=== PATIENT | female | born 1935 | race Caucasian/White ===

== ENCOUNTER 2019-11-01 14:37 | Emergency (ER) | payer MEDICARE, OTHER, SELFPAY ==
[2019-11-01 14:41] VITALS: BMI 28.3
[2019-11-01 14:47] VITALS: BP 175/59; PULSE 65; RESP 18; TEMP 36.4; O2SAT 91
--- NOTE | 2019-11-01 14:49 | ED_ITS ---
Entered by Paulina Angel, acting as scribe for Edgar Rowan DO HPI - Weakness General: Chief complaint: Weakness Stated complaint: NEAR SYNCOPE, DIZZY, WEAKNESS Time Seen by Provider: 11/01/19 14:44 Source: patient and EMS Mode of arrival: EMS History of Present Illness: HPI Narrative: 84 yo female presents with weakness. 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 pt states she does this when she eats sugar then she is fine. pt states the other people wanted her checked out they called EMS. 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) Duration: progressively worsening Severity: mild Relieving factors: none Exacerbating factors: none Associated symptoms: Reports no associated symptoms and syncope (while standing then sat down); Denies chills, confusion, dark stools, dysuria, easy bruising, fever(s), headache(s), nausea or vomiting Review of Systems Const: Denies: fever, chills, body aches, fatigue, malaise or night sweats Eyes: Denies: change in vision or blurry vision ENMT: Denies: throat pain, oral sores/lesions, dental pain, nasal discharge or nasal congestion Card: Reports: syncope (while standing then sat down) Resp: Denies: shortness of breath, productive cough, non-productive cough or wheezing GI: Denies: abdominal pain, nausea, vomiting, vomiting blood, coffee grounds in vomit, difficulty swallowing, heartburn/indigestion, diarrhea, constipation, cramping, blood in stool or black tarry stool : Denies: flank pain, painful urination, urinary frequency, urinary urgency, urinary incontinence or blood in urine Musc: Denies: neck pain, back pain, extremity pain, extremity swelling, joint pain or joint swelling Skin/Breast: Denies: rash, itching or redness Neuro: Denies: headache, numbness in extremities, weakness in extremities, changes in sensation, lack of coordination, difficulty walking, frequent falls or confusion Psych: Denies: anxiety, depression, loss of interest, visual hallucinations, auditory hallucinations, suicidal ideation or homicidal ideation Endo: Denies: excessive urination, excessive thirst, tired all the time or cold intolerance Allan/Lymph: Denies: easy bruising, easy bleeding, petechiae, enlarged lymph nodes or tender lymph nodes PFSH ED PFSH: Statuses (acute, chronic, etc) shown below reflect problem list status as previously entered and may not be historically accurate Social History Smoking and tobacco status: never smoked Physical Exam Const: COMMON NORMALS: average body habitus, oriented x3 and alert GENERAL APPEARANCE: cooperative, comfortable, well kempt and well developed NUTRITIONAL APPEARANCE: obese ORIENTATION/CONSCIOUSNESS: Yes awake, Yes oriented to person and Yes oriented to place HENMT: COMMON NORMALS: normocephalic, head/scalp atraumatic, EAC's normal, TM's normal bilaterally, external nose normal, moist oral mucous membranes and oropharynx normal HEAD & SCALP: normocephalic and atraumatic NOSE: external nose normal EXTERNAL AUDITORY CANAL: EAC's normal TYMPANIC MEMBRANE: TM's normal bilaterally MOUTH: oral and palatal mucosa normal, lip normal and tongue normal THROAT: posterior oropharynx normal and tonsils normal Eye: COMMON NORMALS: PERRL, EOMs intact bilaterally, conjunctivae normal and no scleral icterus CONJUNCTIVA: Yes conjunctivae normal PUPIL: Yes PERRL Neck/C-Spine: COMMON NORMALS: full ROM, no lymphadenopathy, supple, no meningeal signs and thyroid normal THYROID: thyroid normal and asymmetrical Lymph: LYMPHATIC: no lymphadenopathy noted Resp: COMMON NORMALS: normal respiratory effort, no retractions, no use of accessory muscles and clear to auscultation bilaterally AUSCULTATION: clear to auscultation bilaterally Cardio: COMMON NORMALS: regular rate and regular rhythm RATE: regular rate RHYTHM: regular rhythm HEART SOUNDS: no murmurs GI: COMMON NORMALS: normal to inspection, nondistended, normoactive bowel sounds, soft to palpation and no hepatosplenomegaly PALPATION: Yes soft and Yes no hepatosplenomegaly : COMMON NORMALS: Yes no CVA tenderness BLADDER/KIDNEY EXAM: Yes no CVA tenderness Back/Pelvis: COMMON NORMALS: no CVA tenderness LUMBAR SPINE/LOWER BACK: Yes normal to inspection Extremity: COMMON NORMALS: no clubbing, cyanosis or edema, no calf tenderness and no pedal edema Neuro: COMMON NORMALS: oriented x3 SENSORIUM/ORIENTATION: Yes alert, Yes oriented to person and Yes oriented to place MENINGEAL SIGNS: Yes no meningeal signs Psych: APPEARANCE: Yes well kempt Skin: COMMON NORMALS: no rashes or lesions noted and skin turgor normal GENERAL SKIN EXAM: no rashes or lesions noted and turgor normal Course ED course: Patient reports having multiple episodes of this in the past this occurred after she been standing for an extended period of time. Her sodium is a little bit on the low side but she has had this in the past. Gets mostly relatable to her chlorthalidone. She is feeling well and prefers to go home we will go ahead and discharge home follow-up with her primary care doctor return if worsens or changes Vital Signs: Vital signs: Vital Signs Temperature 97.6 F 11/01/19 14:47 Pulse Rate 72 11/01/19 18:57 Respiratory Rate 17 11/01/19 18:57 Blood Pressure 200/92 11/01/19 18:57 Pulse Oximetry 93 11/01/19 18:57 MDM - Weakness Lab Data: Labs: Lab Results 11/01/19 11/01/19 11/01/19 Range/Units 15:20 15:20 16:10 WBC 6.3 (4.0-10.0) 10^3/ uL RBC 3.48 L (4.1-5.3) 10^6/u L Hgb 10.8 L (11.5-15.3) g/dL Hct 31.1 L (37.0-47.0) % MCV 89.4 (81-99) fL MCH 31.0 (28.0-34.0) pg MCHC 34.7 (30.0-36.0) g/dL RDW 12.0 L (12.1-15.1) % Plt Count 296 (130-400) 10^3/c mm MPV 9.2 (7.4-10.4) fL Neut % (Auto) 74.8 % Lymph % (Auto) 18.0 % [place] % (Auto) 5.3 % Eos % (Auto) 1.0 % Baso % (Auto) 0.6 % Neut # (Auto) 4.7 (1.8-7.7) 10^3/u L Lymph # (Auto) 1.1 (0.8-4.8) 10^3/u L [place] # (Auto) 0.3 (0.2-0.9) 10^3/u L Eos # (Auto) 0.1 (0.0-0.8) 10^3/u L Baso # (Auto) 0.0 (0.0-0.1) 10^3/u L Nucleated RBC % (a uto) 0 % Nucleated RBCs # 0.0 /100WBC Sodium 131 L (136-145) mmol/L Potassium 4.1 (3.5-5.1) mmol/L Chloride 94 L (98-107) mmol/L Carbon Dioxide 26 (22-29) mmol/L Anion Gap 15.1 (5-19) BUN 18 (8-23) mg/dL Creatinine 1.4 H (0.5-0.9) mg/dL Glucose 134 H (65-115) mg/dL Calculated Osmolal ity (285-295) mOsm/k g Calcium 9.8 (8.5-10.5) mg/dL Total Bilirubin 0.5 (0.15-1.2) mg/dL AST 24 (0-32) U/L ALT 17 (0-33) U/L Alkaline Phosphata se 97 (35-105) IU/L Total Protein 7.5 (6.6-8.7) g/dL Albumin 3.9 (3.5-5.2) g/dL Globulin 3.6 (1.3-4.6) g/dL Urine Color Yellow (Yellow) Urine Appearance Clear (CLEAR) Urine pH 6 (5-7) Ur Specific Gravit y 1.010 (1.005-1.030) Urine Protein Neg (Negative) Urine Glucose (UA) Norm (Normal) Urine Ketones 1+ H (Negative) Urine Occult Blood Neg (Negative) Urine Nitrate Negative (Negative) Urine Bilirubin Neg (NEGATIVE) Urine Urobilinogen Norm (Negative) mg/dL Ur Leukocyte Katlyn ase Negative (Negative) 11/01/19 Range/Units 16:28 WBC (4.0-10.0) 10^3/ uL RBC (4.1-5.3) 10^6/u L Hgb (11.5-15.3) g/dL Hct (37.0-47.0) % MCV (81-99) fL MCH (28.0-34.0) pg MCHC (30.0-36.0) g/dL RDW (12.1-15.1) % Plt Count (130-400) 10^3/c mm MPV (7.4-10.4) fL Neut % (Auto) % Lymph % (Auto) % [place] % (Auto) % Eos % (Auto) % Baso % (Auto) % Neut # (Auto) (1.8-7.7) 10^3/u L Lymph # (Auto) (0.8-4.8) 10^3/u L [place] # (Auto) (0.2-0.9) 10^3/u L Eos # (Auto) (0.0-0.8) 10^3/u L Baso # (Auto) (0.0-0.1) 10^3/u L Nucleated RBC % (a uto) % Nucleated RBCs # /100WBC Sodium 129 L (136-145) mmol/L Potassium 4.0 (3.5-5.1) mmol/L Chloride 92 L (98-107) mmol/L Carbon Dioxide 25 (22-29) mmol/L Anion Gap 16.0 (5-19) BUN 19 (8-23) mg/dL Creatinine 1.3 H (0.5-0.9) mg/dL Glucose 154 H (65-115) mg/dL Calculated Osmolal ity 268 L (285-295) mOsm/k g Calcium 9.6 (8.5-10.5) mg/dL Total Bilirubin (0.15-1.2) mg/dL AST (0-32) U/L ALT (0-33) U/L Alkaline Phosphata se (35-105) IU/L Total Protein (6.6-8.7) g/dL Albumin (3.5-5.2) g/dL Globulin (1.3-4.6) g/dL Urine Color (Yellow) Urine Appearance (CLEAR) Urine pH (5-7) Ur Specific Gravit y (1.005-1.030) Urine Protein (Negative) Urine Glucose (UA) (Normal) Urine Ketones (Negative) Urine Occult Blood (Negative) Urine Nitrate (Negative) Urine Bilirubin (NEGATIVE) Urine Urobilinogen (Negative) mg/dL Ur Leukocyte Katlyn ase (Negative) Discharge Plan Discharge Patient Disposition: Home, Self-Care Clinical Impression: Syncope Condition: Stable Prescriptions: No Action carvedilol 25 mg tablet 25 mg PO BID RF: 0 chlorthalidone 25 mg tablet 12.5 mg PO DAILY RF: 0 hydralazine 50 mg tablet 50 mg PO TID RF: 0 irbesartan 300 mg tablet 150 mg PO BID RF: 0 Referrals: Rony Aguirre MD [Family Provider] - Discharge Diet: Usual diet Discharge Activity: Increase activity as tolerated Discharge Date/Time: 11/01/19 18:57 Coding Level of Care Code ED Registered Nurse for Chg Fwd Exam Problem Focused The documentation recorded by the Stanley leblanc Bridget Annette, accurately reflects the service I personally performed and the decisions made by Anum dean Curtis L, DO Nov 01, 2019 14:37
[2019-11-01 15:26] LABS: Basophils % 0.6 %; Eosinophils # 0.1 10^3/uL (0.0-0.8); Hematocrit 31.1 % (37.0-47.0); Hemoglobin 10.8 g/dL (11.5-15.3); Lymphocytes # 1.1 10^3/uL (0.8-4.8); Mean Corpuscular HGB Conc 34.7 g/dL (30.0-36.0); Mean Corpuscular Volume 89.4 fL (81-99); Mean Platelet Volume 9.2 fL (7.4-10.4); Monocytes # 0.3 10^3/uL (0.2-0.9); Monocytes % 5.3 %; Neutrophils # 4.7 10^3/uL (1.8-7.7); Neutrophils % 74.8 %; Nucleated Red Blood Cells % 0 %; Platelet Count 296 10^3/cmm (130-400); Red Blood Count 3.48 10^6/uL (4.1-5.3); White Blood Count 6.3 10^3/uL (4.0-10.0)
[2019-11-01 15:28] VITALS: PULSE 73; RESP 17; O2SAT 91
[2019-11-01 15:53] LABS: Alanine Aminotransferase 17 U/L (0-33); Albumin Level 3.9 g/dL (3.5-5.2); Alkaline Phosphatase 97 IU/L (35-105); Anion Gap 15.1 (5-19); Aspartate Amino Transferase 24 U/L (0-32); Blood Urea Nitrogen 18 mg/dL (8-23); Calcium 9.8 mg/dL (8.5-10.5); Carbon Dioxide 26 mmol/L (22-29); Chloride 94 mmol/L (98-107); Globulin 3.6 g/dL (1.3-4.6); Glucose 134 mg/dL (65-115); Potassium 4.1 mmol/L (3.5-5.1); Sodium 131 mmol/L (136-145); Total Bilirubin 0.5 mg/dL (0.15-1.2); Total Protein 7.5 g/dL (6.6-8.7)
[2019-11-01 16:04] VITALS: BP 142/80; BP 172/72; BP 182/68; PULSE 67; PULSE 68; PULSE 73
[2019-11-01 16:32] VITALS: PULSE 71; RESP 20; O2SAT 93
[2019-11-01 16:57] LABS: Add Urine Microscopic? NO
[2019-11-01 16:59] LABS: Blood Urea Nitrogen 19 mg/dL (8-23); Calcium 9.6 mg/dL (8.5-10.5); Carbon Dioxide 25 mmol/L (22-29); Chloride 92 mmol/L (98-107); Glucose 154 mg/dL (65-115); Osmolality Calculated 268 mOsm/kg (285-295); Sodium 129 mmol/L (136-145)
[2019-11-01 17:30] LABS: Bilirubin Urine Neg (NEGATIVE); Blood Urine Neg (Negative); Glucose Urine UA Norm (Normal); Ketones Urine 1+ (Negative); Leukocyte Esterase Urine Negative (Negative); Nitrate Urine Negative (Negative); Protein Urine Neg (Negative); Urine Appearance Clear (CLEAR); Urine Color Yellow (Yellow); Urobilinogen Urine Norm (Negative); pH Urine 6 (5-7)
[2019-11-01 18:09] VITALS: PULSE 71; RESP 20; O2SAT 93
[2019-11-01 18:57] VITALS: BP 200/92; PULSE 72; RESP 17; O2SAT 93
== END 2019-11-01 18:57 | disposition home or self-care (01) ==
PROVIDERS: Emergency Provider Family Medicine; Family Provider Family Medicine
DX: R55 Syncope and collapse (principal)
CPT/HCPCS: 36415; 80048; 80053; 81003; 85025; 99283; A9270

== ENCOUNTER 2020-06-26 10:32 | Outpatient (CLI) | payer MEDICARE, OTHER, SELFPAY ==
--- NOTE | 2020-06-26 10:46 | USCV_ITS ---
Robert Aden Age: 84 Gender: F : 1935 Exam Date: 06/26/2020 10:56 Ordering Phys: Waltre Alexandra [place] ([email or web address] [place] Technologist: Dominique Malcolm Exam Location: [facility] [place] Indication: stenosis Risk Factors: Previous Vascular Surgery: Right Brachial BP: / Left Brachial BP: / Right Left Velocity (cm/s) Spectral Plaque Velocity (cm/s) Spectral Plaque Syst/Diast Broadening Syst/Diast Broadening 89.80/ 12.40 Prox CCA 84.40 / 10.30 73.30/ 15.70 Mid CCA 82.50 / 15.00 59.30/ 16.50 Distal CCA 61.00 / 17.80 46.10/ 16.50 Prox ICA 89.90 / 17.20 51.60/ 14.10 Mid ICA 58.10 / 21.10 71.30/ 20.60 Distal ICA 42.20 / 14.10 79.10 ECA 128.20 0.97 ICA/CCA 1.09 Not Vertebral Antegrade Visualized / cm/s 47.80/ 7.50 cm/s Tri Subclavian 66.60 148.4 0 FINDINGS Minimal dense scattered plaques at the bifurcation and internal carotid artery on the right side Minimal dense plaques of the left bifurcation internal carotid artery on the left side Intimal thickening in the common carotid arteries bilaterally. Antegrade flow in the vertebral artery on the left side. Right vertebral artery could not be visualized. CONCLUSIONS Minimal dense plaques at the bifurcations and internal carotid arteries bilaterally. Intimal thickening in the common carotid arteries bilaterally. Right vertebral artery could not be visualized. Compared to the study from 09/09/2019 the flow in the left vertebral artery is antegrade at this time! Consider CTA, to better evaluate the arch vessels Dr Terrance Null MD FACC (Electronically Signed) Final Date: 27 June 2020 20:45 S
[2020-06-26 12:34] LABS: Anion Gap 14.3 (5-19); Blood Urea Nitrogen 23 mg/dL (8-23); Calcium 9.5 mg/dL (8.5-10.5); Carbon Dioxide 28 mmol/L (22-29); Chloride 94 mmol/L (98-107); Glucose 84 mg/dL (65-115); Osmolality Calculated 277 mOsm/kg (285-295); Potassium 4.3 mmol/L (3.5-5.1); Sodium 132 mmol/L (136-145)
== END 2020-06-26 10:33 | disposition home or self-care (01) ==
LOC: RAD 10:36
PROVIDERS: Visit Provider Thoracic Surgery (Cardiothoracic Vascular Surgery)
DX: I65.23 Occlusion and stenosis of bilateral carotid arteries (principal)
CPT/HCPCS: 36415; 80048; 93880

== ENCOUNTER 2021-01-10 11:29 | Outpatient (CLI) | payer MEDICARE, OTHER, SELFPAY ==
[2021-01-10 12:30] LABS: Albumin Level 4.1 g/dL (3.5-5.2); Anion Gap 12.4 (5-19); Blood Urea Nitrogen 22 mg/dL (8-23); Calcium 9.3 mg/dL (8.5-10.5); Carbon Dioxide 29 mmol/L (22-29); Chloride 94 mmol/L (98-107); Glucose 117 mg/dL (65-115); Phosphorus 3.2 mg/dL (2.5-4.5); Potassium 4.4 mmol/L (3.5-5.1); Sodium 131 mmol/L (136-145)
== END 2021-01-10 11:30 | disposition home or self-care (01) ==
PROVIDERS: PCP Family Medicine; Visit Provider Internal Medicine Nephrology
DX: N18.31 Chronic kidney disease, stage 3a (principal)
CPT/HCPCS: 36415; 80069

== ENCOUNTER 2021-06-29 09:58 | Outpatient (CLI) | payer MEDICARE, OTHER, SELFPAY ==
--- NOTE | 2021-06-29 11:00 | USCV_ITS ---
Robert Aden Age: 85 Gender: F : 1935 Exam Date: 06/29/2021 10:43 Ordering Phys: Walter Alexandra MD (Andy) ([email or web address] [place]) Technologist: Dipika Stearns [place] [facility] [place]: Carotid artery stenosis Risk Factors: Previous Vascular Surgery: R CEA Right Brachial BP: / Left Brachial BP: / Right Left Velocity (cm/s) Spectral Plaque Velocity (cm/s) Spectral Plaque Syst/Diast Broadening Syst/Diast Broadening 89.40/ 4.80 Prox CCA 85.00 / 14.60 80.70/ 12.50 Mid CCA 82.50 / 11.50 69.50/ 11.00 Distal CCA 74.60 / 10.90 58.10/ 10.60 Prox ICA 89.90 / 26.80 74.70/ 18.10 Mid ICA 87.20 / 22.50 78.40/ 20.40 Distal ICA 109.70/ 24.40 83.10 ECA 123.90 0.97 ICA/CCA 1.33 Antegrade Vertebral Retrograde 88.10/ 11.50 cm/s 54.40/ 6.60 cm/s Tri Subclavian [place] 113.2 70.30 0 CONCLUSIONS Right ICA stenosis <50%. Mild atheromatous plaque right carotid bulb/ICA. Left ICA stenosis <50%. Mild atheromatous plaque left carotid bulb/ICA. Normal antegrade Doppler flow noted in the right vertebral artery. Retrograde Doppler flow noted in the left vertebral artery with monophasic subclavian waveform suspicious for subclavian steal. Sekou Sanchez MD (Electronically Signed) Final Date: 29 June 2021 15:13 S
[2021-06-29 11:28] LABS: Basophils % 0.8 %; Eosinophils # 0.1 10^3/uL (0.0-0.8); Eosinophils % 1.7 %; Hematocrit 36.7 % (37.0-47.0); Hemoglobin 12.7 g/dL (11.5-15.3); Lymphocytes # 1.3 10^3/uL (0.8-4.8); Lymphocytes % 26.3 %; Mean Corpuscular HGB Conc 34.6 g/dL (30.0-36.0); Mean Corpuscular Hemoglobin 31.4 pg (28.0-34.0); Mean Corpuscular Volume 90.6 fl (81-99); Mean Platelet Volume 10.2 fL (7.4-10.4); Monocytes # 0.4 10^3/uL (0.2-0.9); Monocytes % 7.5 %; Neutrophils # 3.04 10^3/uL (1.8-7.7); Neutrophils % 63.5 %; Nucleated Red Blood Cells % 0 %; Platelet Count 266 10^3/cmm (130-400); Red Blood Count 4.05 10^6/uL (4.1-5.3); Red Cell Distribution Width 11.9 % (12.1-15.1); White Blood Count 4.8 10^3/uL (4.0-10.0)
[2021-06-29 11:46] LABS: Creatinine Urine, Random 46 mg/dL (28-217)
[2021-06-29 11:47] LABS: Microalbum Creatinine Ratio Ur 22 mg/dL (0-20); Microalbumin Random Urine 1 ug/dL (0-20)
[2021-06-29 12:03] LABS: Albumin Level 4.1 g/dL (3.5-5.2); Anion Gap 14.2 (5-19); Blood Urea Nitrogen 22 mg/dL (8-23); Calcium 9.6 mg/dL (8.5-10.5); Carbon Dioxide 29 mmol/L (22-29); Chloride 94 mmol/L (98-107); Glucose 103 mg/dL (65-115); Phosphorus 2.8 mg/dL (2.5-4.5); Potassium 4.2 mmol/L (3.5-5.1); Sodium 133 mmol/L (136-145)
[2021-06-29 12:13] LABS: Calcium 9.6 mg/dL (8.5-10.5); Parathyroid Hormone 46.3 pg/mL (15-65)
== END 2021-06-29 09:59 | disposition home or self-care (01) ==
LOC: US 10:06
PROVIDERS: PCP Family Medicine; Referring Provider Internal Medicine Nephrology; Visit Provider Thoracic Surgery (Cardiothoracic Vascular Surgery)
DX: I65.23 Occlusion and stenosis of bilateral carotid arteries (principal)
CPT/HCPCS: 36415; 80069; 82044; 82310; 83970; 85025; 93880

== ENCOUNTER 2022-01-02 10:25 | Outpatient (CLI) | payer MEDICARE, OTHER, SELFPAY ==
[2022-01-02 11:47] LABS: Calcium 9.8 mg/dL (8.5-10.5); Parathyroid Hormone 47.8 pg/mL (15-65)
[2022-01-02 12:07] LABS: Creatinine Urine, Random 28 mg/dL (28-217); Microalbum Creatinine Ratio Ur 36 mg/dL (0-20); Microalbumin Random Urine 1 ug/dL (0-20)
[2022-01-03 14:01] LABS: Albumin Level 4.2 g/dL (3.5-5.2); Anion Gap 17.2 (5-19); Blood Urea Nitrogen 17 mg/dL (8-23); Calcium 9.5 mg/dL (8.5-10.5); Carbon Dioxide 24 mmol/L (22-29); Chloride 89 mmol/L (98-107); Glucose 95 mg/dL (65-115); Potassium 6.2 mmol/L (3.5-5.1); Sodium 124 mmol/L (136-145)
== END 2022-01-02 10:26 | disposition home or self-care (01) ==
LOC: LAB 10:28
PROVIDERS: PCP Family Medicine; Visit Provider Internal Medicine Nephrology
DX: N18.2 Chronic kidney disease, stage 2 (mild) (principal)
CPT/HCPCS: 36415; 80069; 82044; 82310; 83970

== ENCOUNTER 2022-01-22 09:36 | Outpatient (CLI) | payer MEDICARE, OTHER, SELFPAY ==
[2022-01-22 10:19] LABS: Blood Urea Nitrogen 18 mg/dL (8-23); Calcium 8.8 mg/dL (8.5-10.5); Carbon Dioxide 26 mmol/L (22-29); Chloride 96 mmol/L (98-107); Glucose 127 mg/dL (65-115); Osmolality Calculated 275 mOsm/kg (285-295); Sodium 131 mmol/L (136-145)
== END 2022-01-22 09:37 | disposition home or self-care (01) ==
PROVIDERS: PCP Family Medicine; Visit Provider Internal Medicine Nephrology
DX: Z01.89 Encounter for other specified special examinations (principal)
CPT/HCPCS: 36415; 80048

== ENCOUNTER 2022-06-11 10:04 | Outpatient (CLI) | payer MEDICARE, OTHER, SELFPAY ==
[2022-06-11 10:46] LABS: Basophils # 0.1 10^3/uL (0.0-0.1); Basophils % 1.1 %; Eosinophils # 0.2 10^3/uL (0.0-0.8); Eosinophils % 2.9 %; Hematocrit 33.4 % (37.0-47.0); Hemoglobin 11.7 g/dL (11.5-15.3); Lymphocytes # 1.3 10^3/uL (0.8-4.8); Lymphocytes % 24.4 %; Mean Corpuscular Volume 94.1 fl (81-99); Mean Platelet Volume 10.5 fL (7.4-10.4); Monocytes # 0.4 10^3/uL (0.2-0.9); Monocytes % 7.7 %; Neutrophils # 3.44 10^3/uL (1.8-7.7); Neutrophils % 63.3 %; Nucleated Red Blood Cells % 0 %; Platelet Count 239 10^3/cmm (130-400); Red Blood Count 3.55 10^6/uL (4.1-5.3); Red Cell Distribution Width 12.5 % (12.1-15.1); White Blood Count 5.4 10^3/uL (4.0-10.0)
[2022-06-11 11:08] LABS: Albumin Level 3.9 g/dL (3.5-5.2); Anion Gap 14.9 (5-19); Blood Urea Nitrogen 15 mg/dL (8-23); Calcium 9.4 mg/dL (8.5-10.5); Carbon Dioxide 24 mmol/L (22-29); Chloride 98 mmol/L (98-107); Glucose 113 mg/dL (65-115); Phosphorus 2.8 mg/dL (2.5-4.5); Potassium 4.9 mmol/L (3.5-5.1); Sodium 132 mmol/L (136-145)
[2022-06-11 11:10] LABS: Creatinine Urine, Random 82 mg/dL (28-217); Microalbum Creatinine Ratio Ur 12 mg/dL (0-20); Microalbumin Random Urine 1 ug/dL (0-20)
[2022-06-11 12:02] LABS: Calcium 9.5 mg/dL (8.5-10.5); Parathyroid Hormone 51.6 pg/mL (15-65)
== END 2022-06-11 10:05 | disposition home or self-care (01) ==
LOC: LAB 10:10
PROVIDERS: PCP Nurse Practitioner Family; Visit Provider Internal Medicine Nephrology
DX: N18.2 Chronic kidney disease, stage 2 (mild) (principal)
CPT/HCPCS: 36415; 80069; 82044; 82310; 83970; 85025

== ENCOUNTER 2022-10-11 11:34 | Outpatient (CLI) | payer MEDICARE, OTHER, SELFPAY ==
--- NOTE | 2022-10-11 12:00 | USCV_ITS ---
Robert Aden Age: 86 Gender: F : 1935 Exam Date: 10/11/2022 12:16 Ordering Phys: Walter Alexandra MD (Andy) ([email or web address] [place] Technologist: BRIANA Exam Location: [facility] [place] Indication: Carotid Stenosis Risk Factors: Previous Vascular Surgery: Right Brachial BP: / Left Brachial BP: / Right Left Velocity (cm/s) Spectral Plaque Velocity (cm/s) Spectral Plaque Syst/Diast Broadening Syst/Diast Broadening 87.20/ 12.80 Prox CCA 92.90 / 14.10 96.60/ 16.20 Mid CCA 66.10 / 10.60 64.10/ 10.30 Distal CCA 52.90 / 9.30 53.20/ 9.20 Prox ICA 51.50 / 13.90 36.80/ 13.10 Mid ICA 54.80 / 19.20 65.70/ 16.40 Distal ICA 74.00 / 17.80 61.80 ECA 114.40 0.68 ICA/CCA 0.80 Vertebral 100.4/ 15.90 cm/s 43.00/ 0.70 cm/s 0 Subclavian 112.5 63.40 0 FINDINGS Comparison:. 06/29/21. No significant elevation of systolic or diastolic velocities. Waveforms are normal. Mild carotid atherosclerosis. Antegrade vertebral arteries. CONCLUSIONS Bilateral ICA stenosis less than 50%. No progression of atherosclerosis. Dr. Velma Dumont DO (Electronically Signed) Final Date: 11 October 2022 13:43 S
== END 2022-10-11 11:35 | disposition home or self-care (01) ==
LOC: RAD 11:36
PROVIDERS: PCP Nurse Practitioner Family; Visit Provider Thoracic Surgery (Cardiothoracic Vascular Surgery)
DX: I65.23 Occlusion and stenosis of bilateral carotid arteries (principal)
CPT/HCPCS: 93880

== ENCOUNTER 2023-11-06 09:20 | Outpatient (CLI) | payer MEDICARE, OTHER, SELFPAY ==
--- NOTE | 2023-11-06 09:45 | USCV_ITS ---
Robert Aden Age: 88 Gender: F : 1935 Exam Date: 11/06/2023 09:31 Ordering Phys: Walter Alexandra MD (Andy) ([email or web address] [place]) Technologist: HONORIO Exam Location: [facility] [place] Indication: EVAL FOR STENOSIS. RT CEA. KNOWN LEFT VERT RETROGRADE FLOW Risk Factors: Previous Vascular Surgery: Right Brachial BP: / Left Brachial BP: / Right Left Velocity (cm/s) Spectral Plaque Velocity (cm/s) Spectral Plaque Syst/Diast Broadening Syst/Diast Broadening 137.00/19.00 Prox CCA 91.00 / 15.00 86.00/ 19.00 Mid CCA 85.00 / 14.00 76.00/ 10.00 Distal CCA 62.00 / 12.00 75.00/ 15.00 Prox ICA 74.00 / 16.00 80.00/ 19.00 Mid ICA 79.00 / 19.00 137.00/32.00 Distal ICA 70.00 / 17.00 106.00 ECA 144.00 1.80 ICA/CCA 1.30 Antegrade Vertebral Retrograde 118.0/ 15.00 cm/s 49.00/ 0.00 cm/s 0 Tri Subclavian Bi 181.0 104.0 0 0 FINDINGS Comparison:. 10/11/22 No significant elevation of systolic or diastolic velocities. Waveforms are normal. Mild carotid plaque. Retrograde left vertebral artery. Antegrade right vertebral artery. CONCLUSIONS Bilateral ICA stenosis less than 50%. No interval change in stenosis since prior exam. Known reversal flow in the left vertebral artery. Dr. Velma Dumont DO (Electronically Signed) Final Date: 06 November 2023 11:14 S
== END 2023-11-06 09:21 | disposition home or self-care (01) ==
LOC: RAD 09:20
PROVIDERS: PCP Nurse Practitioner Family; Visit Provider Thoracic Surgery (Cardiothoracic Vascular Surgery)
DX: I65.23 Occlusion and stenosis of bilateral carotid arteries (principal)
CPT/HCPCS: 93880

== ENCOUNTER → 2023-12-22 14:44 | Outpatient (BNVA) | payer MEDICARE, OTHER, SELFPAY | PROVIDERS: PCP Nurse Practitioner Family; Visit Provider Thoracic Surgery (Cardiothoracic Vascular Surgery) | DX: Z98.890 Other specified postprocedural states (principal) | CPT/HCPCS: 99213 ==